=== PATIENT | male | born 1965 | race Caucasian/White ===

== ENCOUNTER → 2023-01-17 14:21 | Outpatient (CLI) | payer OTHER, SELFPAY ==
--- NOTE | ~2023-01-17 | XR_ITS ---
EXAMINATION: XR wrist LT min 3V DATE: 01/17/2023 15:16 INDICATION: Left wrist pain. TECHNIQUE: 4 views of left wrist were obtained. COMPARISON: None. FINDINGS: Bone alignment is normal. No fracture. There is mild osteoarthritis of distal radioulnar monico int. IMPRESSION: 1. Mild osteoarthritis of distal radioulnar joint. Reviewed, dictated and finalized at location A.
== END ==
PROVIDERS: PCP Chiropractor; Visit Provider Chiropractor
DX: M19.032 Primary osteoarthritis, left wrist (principal)
CPT/HCPCS: 73110